=== PATIENT | male | born 1975 | race Caucasian/White ===

== ENCOUNTER 2025-04-08 08:05 | Emergency (ER) | payer BC ==
[2025-04-08] MEDS: Ketorolac 30 MG/ML SDV IM ONE (08:39)
== END 2025-04-08 09:25 | disposition home or self-care (01) ==
LOC: MW.ED 08:05
DX: M25.562 Pain in left knee (principal); Z79.899 Other long term (current) drug therapy; Z87.39 Personal history of other diseases of the musculoskeletal system and connective tissue
CPT/HCPCS: 73562; 96372; 99283; A9270; J1885; J8540; 99284

== ENCOUNTER 2025-06-02 10:10 | Day surgery (SDC) | payer BC ==
[~2025-06-02 10:10] MED LIST: ceFAZolin 2 GM in Water For Injection, Sterile 20 ML IVPUSH ONE
[2025-06-02] MEDS ORDERED: Albuterol 0.083% 2.5 MG/3 ML Neb Soln NEB PRN (10:46)
[2025-06-02] MEDS ORDERED: Ondansetron 4 MG/2 ML SDV IVPUSH PRN (10:46)
[2025-06-02] MEDS ORDERED: fentaNYL 50 MCG/ML SDV IVPUSH PRN (10:46)
[2025-06-02] MEDS ORDERED: Naloxone 0.4 MG/ML SDV IVPUSH PRN (10:46)
[2025-06-02] MEDS: Lactated Ringers 1,000 ML IV SCH (10:55)
[2025-06-02] MEDS ORDERED: Propofol 200 MG/20 ML SDV ONE ×2 (11:00→11:01)
[2025-06-02] MEDS ORDERED: fentaNYL 100 MCG/2 ML SDV ONE (11:01)
[2025-06-02] MEDS ORDERED: Dexamethasone 4 MG/ML 5 ML MDV ONE (11:02)
[2025-06-02] MEDS ORDERED: Ondansetron 4 MG/2 ML SDV ONE (11:02)
[2025-06-02] MEDS ORDERED: dexmedeTOMIDine HCl 200 MCG/2 ML SDV ONE (11:02)
[2025-06-02] MEDS ORDERED: Bupivacaine 0.5%/EPINEPHrine 1:200,000 30 ML SDV ONE (12:36)
[2025-06-02] MEDS ORDERED: Ketamine HCL/NACL, ISO-OSM 50 MG/5 ML Syringe ONE (12:37)
[2025-06-02] MEDS ORDERED: Ketorolac 30 MG/ML SDV ONE (13:21)
== END 2025-06-02 15:10 | disposition home or self-care (01) ==
LOC: MW.SDS 10:10
PROVIDERS: ATTEND Orthopaedic Surgery
DX: S83.212A Bucket-handle tear of medial meniscus, current injury, left knee, initial encounter (principal); F17.210 Nicotine dependence, cigarettes, uncomplicated
CPT/HCPCS: 29881; J0690; J1100; J1885; J2405; J2704; J3010; J7120; 01400; J0665; J3490